=== PATIENT | female | born 1940 | race Caucasian/White ===

== ENCOUNTER 2018-02-10 11:18 | Inpatient (IN) | payer MEDICARE, OTHER ==
[2018-02-10 11:50] LABS: BASOPHILS % (AUTO) 0 % (0-3); EOSINOPHILS % (AUTO) 1 % (0-9); HEMATOCRIT 31 % (35-47); LYMPHOCYTES % (AUTO) 12.7 % (10-50); MEAN CORPUSCULAR HEMOGLOBIN 31.1 pg (27.0-32.0); MEAN CORPUSCULAR VOLUME 89 fL (81-99); MONOCYTES % (AUTO) 14.7 % (0-12); NEUTROPHILS % (AUTO) 71.7 % (37-80)
[2018-02-10 12:03] LABS: LACTIC ACID 1.6 mMol/L (0.0-2.0)
[2018-02-10 12:09] LABS: ALBUMIN 2.8 gm/dl (3.4-5.0); BILIRUBIN,TOTAL 1.1 mg/dl (0.2-1.0); CARBON DIOXIDE 24.4 mEq/L (21-32); CREATININE 0.72 mg/dl (0.60-1.00); POTASSIUM 3.7 mMol/L (3.5-5.1); TOTAL PROTEIN 5.9 gm/dl (6.4-8.2)
[2018-02-10 13:03] LABS: APPEARANCE,URINE Cloudy; BILIRUBIN,URINE NEGATIVE (NEGATIVE); COLOR,URINE Yellow; GLUCOSE, URINE (UA) NEGATIVE (NEGATIVE); KETONES,URINE NEGATIVE (NEGATIVE); LEUKOCYTE ESTERASE ,URINE 3+ (NEGATIVE); NITRATE,URINE POSITIVE (NEGATIVE); OCCULT BLOOD,URINE TRACE INTACT (NEG-TRACE); PH,URINE 7.5; UROBILINOGEN,URINE 0.2 (0.2-1.0 EU)
[2018-02-10 13:29] LABS: RBC,URINE 0-2 (0-3AV/HPF); WBC,URINE >200 (0-5AV/HPF)
[2018-02-10 13:30] LABS: BACTERIA 4+ (< 1+); CRYSTALS NEGATIVE (0-3 AVE/HPF); EPITHELIAL CELLS 0-1 (SQUAMOUS)
[2018-02-10] MEDS ORDERED: ERTAPENEM SODIUM 1 GM PDS ONE (15:51)
[2018-02-10] MEDS: ERTAPENEM SODIUM 1 GM PDS 1 GM in SODIUM CHLORIDE 0.9% 50 ML 50 ML IV SCH (17:36)
[2018-02-10] MEDS ORDERED: SODIUM CHLORIDE 0.9% 1000ML 1,000 ML IV NR (18:45)
[2018-02-10] MEDS: ENOXAPARIN 80 MG SOL SC SCH (19:44)
[2018-02-10] MEDS: SODIUM CHLORIDE 0.9% FLUSH 10 ML SOL IV SCH (19:54)
[2018-02-10] MEDS ORDERED: MAGNESIUM HYDROXIDE PO PRN (21:11)
[2018-02-10] MEDS ORDERED: ALUMINUM HYDROXIDE PO PRN (21:11)
[2018-02-10] MEDS ORDERED: DM/GUAIFENESIN SYRUP 10 ML SYRP PO PRN (21:11)
[2018-02-10] MEDS ORDERED: SIMETHICONE PO PRN (21:11)
[2018-02-10] MEDS ORDERED: ALBUTEROL NEB SOL 2.5MG/3ML 1 VIAL SOL INH PRN (21:11)
[2018-02-10] MEDS ORDERED: ACETAMINOPHEN 650 MG SUP PR PRN (21:23)
[2018-02-10] MEDS ORDERED: MELATONIN 3 MG TAB PO SCH (22:15)
[2018-02-10] MEDS ORDERED: DONEPEZIL 10 MG TAB PO SCH (22:15)
[2018-02-10] MEDS ORDERED: DONEPEZIL 5 MG 5 MG TAB ONE (22:57)
[2018-02-10] MEDS: CALCIUM PO SCH (23:06)
[2018-02-10] MEDS: VITAMIN D PO SCH (23:06)
[2018-02-10] MEDS: [UNRECOGNIZED DRUG - MIXTURE] PO SCH (23:07)
[2018-02-10] MEDS: POLYETHYLENE GLYCOL 17 GM/1 TBS PDS PO SCH (23:07)
[2018-02-10] MEDS: POTASSIUM CHLORIDE 10 MEQ TER PO SCH (23:07)
[2018-02-10] MEDS: ACETAMINOPHEN 325 MG PO PRN (23:08)
[2018-02-10] MEDS: ALBUTEROL/IPRATROPIUM 1 VIAL SOL INH SCH (23:37)
[2018-02-11] MEDS: SODIUM CHLORIDE 0.9% FLUSH 10 ML SOL IV SCH ×3 (04:12→20:13)
[2018-02-11] MEDS: ENOXAPARIN 80 MG SOL SC SCH ×2 (06:27→18:22)
[2018-02-11] MEDS: ALBUTEROL/IPRATROPIUM 1 VIAL SOL INH SCH ×3 (06:38→17:12)
[2018-02-11] MEDS ORDERED: CETIRIZINE HYDROCHLORIDE 10 MG TAB PO SCH (09:00)
[2018-02-11] MEDS ORDERED: BUDESONIDE INH SCH (09:00)
[2018-02-11] MEDS ORDERED: FORMOTEROL INH SCH (09:00)
[2018-02-11] MEDS ORDERED: CHOLECALCIFEROL 1,000 IU TAB PO SCH (09:00)
[2018-02-11] MEDS ORDERED: FLUTICASONE PROPIONATE NAS SCH (09:00)
[2018-02-11] MEDS ORDERED: DOCUSATE SODIUM 100 MG SGL PO SCH (09:00)
[2018-02-11] MEDS ORDERED: MULTIVITAMIN2 1 EA TAB PO SCH (09:00)
[2018-02-11] MEDS: PANTOPRAZOLE SODIUM 40 MG ECT PO SCH (09:02)
[2018-02-11] MEDS: ASPIRIN 81 MG CHEWABLE CTB PO SCH (09:02)
[2018-02-11] MEDS: CIPROFLOXACIN HCL 500 MG TAB PO SCH (09:02)
[2018-02-11] MEDS: POTASSIUM CHLORIDE 10 MEQ TER PO SCH ×2 (09:02→20:19)
[2018-02-11] MEDS: POLYETHYLENE GLYCOL 17 GM/1 TBS PDS PO SCH ×2 (09:03→20:17)
[2018-02-11] MEDS ORDERED: ALUMINUM/MAGNESIUM 30 ML SUS PO PRN (10:00)
[2018-02-11] MEDS: LEVOTHYROXINE SODIUM 88 MCG TAB PO SCH (10:24)
[2018-02-11] MEDS: FERROUS GLUCONATE 324 MG TABLET PO SCH ×2 (10:24→20:19)
[2018-02-11] MEDS: FLUDROCORTISONE ACETATE 0.1 MG TAB PO SCH (10:24)
[2018-02-11] MEDS: CALCIUM CARBONATE 500 MG TAB PO SCH ×2 (10:25→20:20)
[2018-02-11] MEDS: BUDESONIDE/FORMOTEROL 160/4.5 AER INH SCH ×2 (10:25→20:27)
[2018-02-11] MEDS: CHOLECALCIFEROL 1,000 IU TAB PO SCH (10:26)
[2018-02-11] MEDS: FLUTICASONE PROPIONATE SPR NAS SCH (11:41)
[2018-02-11] MEDS: CALCIUM PO SCH (11:42)
[2018-02-11] MEDS: VITAMIN D PO SCH (11:42)
[2018-02-11] MEDS: [UNRECOGNIZED DRUG - MIXTURE] PO SCH (11:43)
[2018-02-11] MEDS ORDERED: SODIUM CHLORIDE 0.9% 50 ML 50 ML IV ONE (14:52)
[2018-02-11] MEDS ORDERED: ERTAPENEM SODIUM 1 GM PDS ONE (14:52)
[2018-02-11] MEDS: ERTAPENEM SODIUM 1 GM PDS 1 GM in SODIUM CHLORIDE 0.9% 50 ML 50 ML IV SCH (15:13)
[2018-02-11] MEDS: ACETAMINOPHEN 325 MG PO PRN (20:17)
[2018-02-11] MEDS: DONEPEZIL 5 MG 5 MG TAB PO SCH (20:19)
[2018-02-12] MEDS: ALBUTEROL/IPRATROPIUM 1 VIAL SOL INH SCH ×5 (00:33→23:56)
[2018-02-12] MEDS: SODIUM CHLORIDE 0.9% FLUSH 10 ML SOL IV SCH ×3 (06:37→20:44)
[2018-02-12] MEDS: ENOXAPARIN 80 MG SOL SC SCH ×2 (06:37→18:24)
[2018-02-12] MEDS: LEVOTHYROXINE SODIUM 88 MCG TAB PO SCH (06:38)
[2018-02-12 07:07] LABS: CALCIUM 8.2 mg/dl (8.5-10.1); CARBON DIOXIDE 26.4 mEq/L (21-32); CREATININE 0.65 mg/dl (0.60-1.00); POTASSIUM 3.3 mMol/L (3.5-5.1)
[2018-02-12 07:20] LABS: BASOPHILS % (AUTO) 1 % (0-3); EOSINOPHILS % (AUTO) 3 % (0-9); HEMATOCRIT 33 % (35-47); HEMOGLOBIN 12.1 gm/dl (12.0-15.5); LYMPHOCYTES % (AUTO) 13.1 % (10-50); MEAN CORPUSCULAR HEMOGLOBIN 32.8 pg (27.0-32.0); MEAN CORPUSCULAR HGB CONC 37.2 gm/dl (32.0-36.0); MEAN CORPUSCULAR VOLUME 88 fL (81-99); NEUTROPHILS % (AUTO) 69.7 % (37-80)
[2018-02-12 08:05] LABS: POIKILOCYTOSIS SLIGHT AMT; SPHEROCYTES PRESENT
[2018-02-12] MEDS: FLUDROCORTISONE ACETATE 0.1 MG TAB PO SCH (08:57)
[2018-02-12] MEDS: CHOLECALCIFEROL 1,000 IU TAB PO SCH (08:57)
[2018-02-12] MEDS: POTASSIUM CHLORIDE 10 MEQ TER PO SCH ×2 (08:57→20:47)
[2018-02-12] MEDS: POLYETHYLENE GLYCOL 17 GM/1 TBS PDS PO SCH ×2 (08:57→20:44)
[2018-02-12] MEDS: FERROUS GLUCONATE 324 MG TABLET PO SCH ×2 (08:57→20:47)
[2018-02-12] MEDS: ASPIRIN 81 MG CHEWABLE CTB PO SCH (08:57)
[2018-02-12] MEDS: CIPROFLOXACIN HCL 500 MG TAB PO SCH (08:57)
[2018-02-12] MEDS: CALCIUM CARBONATE 500 MG TAB PO SCH ×2 (08:59→20:47)
[2018-02-12] MEDS: PANTOPRAZOLE SODIUM 40 MG ECT PO SCH (08:59)
[2018-02-12] MEDS: FLUTICASONE PROPIONATE SPR NAS SCH (09:00)
[2018-02-12] MEDS: BUDESONIDE/FORMOTEROL 160/4.5 AER INH SCH ×2 (09:04→20:48)
[2018-02-12] MEDS ORDERED: ERTAPENEM SODIUM 1 GM PDS 1 GM in SODIUM CHLORIDE 0.9% 50 ML 50 ML IV SCH (15:30)
[2018-02-12] MEDS ORDERED: ERTAPENEM SODIUM 1 GM PDS ONE (15:43)
[2018-02-12] MEDS: DONEPEZIL 5 MG 5 MG TAB PO SCH (20:47)
[2018-02-13] MEDS: ENOXAPARIN 80 MG SOL SC SCH ×2 (06:19→18:10)
[2018-02-13] MEDS: ALBUTEROL/IPRATROPIUM 1 VIAL SOL INH SCH ×3 (06:20→18:10)
[2018-02-13] MEDS: SODIUM CHLORIDE 0.9% FLUSH 10 ML SOL IV SCH ×3 (06:20→20:07)
[2018-02-13] MEDS: LEVOTHYROXINE SODIUM 88 MCG TAB PO SCH (06:20)
[2018-02-13 07:11] LABS: CALCIUM 8.3 mg/dl (8.5-10.1); CARBON DIOXIDE 26.1 mEq/L (21-32); CREATININE 0.53 mg/dl (0.60-1.00); POTASSIUM 3.6 mMol/L (3.5-5.1)
[2018-02-13] MEDS: POTASSIUM CHLORIDE 10 MEQ TER PO SCH ×2 (08:31→20:06)
[2018-02-13] MEDS: CALCIUM CARBONATE 500 MG TAB PO SCH ×2 (08:32→20:06)
[2018-02-13] MEDS: CIPROFLOXACIN HCL 500 MG TAB PO SCH (08:32)
[2018-02-13] MEDS: FERROUS GLUCONATE 324 MG TABLET PO SCH ×2 (08:32→20:06)
[2018-02-13] MEDS: PANTOPRAZOLE SODIUM 40 MG ECT PO SCH (08:32)
[2018-02-13] MEDS: CHOLECALCIFEROL 1,000 IU TAB PO SCH (08:32)
[2018-02-13] MEDS: POLYETHYLENE GLYCOL 17 GM/1 TBS PDS PO SCH ×2 (08:32→20:05)
[2018-02-13] MEDS: ASPIRIN 81 MG CHEWABLE CTB PO SCH (08:32)
[2018-02-13] MEDS: FLUDROCORTISONE ACETATE 0.1 MG TAB PO SCH (08:33)
[2018-02-13] MEDS: FLUTICASONE PROPIONATE SPR NAS SCH (08:44)
[2018-02-13] MEDS: BUDESONIDE/FORMOTEROL 160/4.5 AER INH SCH ×2 (08:45→20:05)
[2018-02-13] MEDS ORDERED: SODIUM CHLORIDE 0.9% 50 ML 50 ML IV ONE (14:00)
[2018-02-13] MEDS ORDERED: ERTAPENEM SODIUM 1 GM PDS ONE (14:00)
[2018-02-13] MEDS: ERTAPENEM SODIUM 1 GM PDS 1 GM in SODIUM CHLORIDE 0.9% 50 ML 50 ML IV SCH (14:14)
[2018-02-13] MEDS: DONEPEZIL 5 MG 5 MG TAB PO SCH (20:06)
[2018-02-14] MEDS: ALBUTEROL/IPRATROPIUM 1 VIAL SOL INH SCH ×3 (00:29→11:57)
[2018-02-14] MEDS: SODIUM CHLORIDE 0.9% FLUSH 10 ML SOL IV SCH ×2 (03:08→12:07)
[2018-02-14] MEDS: ENOXAPARIN 80 MG SOL SC SCH (06:38)
[2018-02-14] MEDS: LEVOTHYROXINE SODIUM 88 MCG TAB PO SCH (06:38)
[2018-02-14] MEDS: POTASSIUM CHLORIDE 10 MEQ TER PO SCH (08:40)
[2018-02-14] MEDS: CHOLECALCIFEROL 1,000 IU TAB PO SCH (08:40)
[2018-02-14] MEDS: CIPROFLOXACIN HCL 500 MG TAB PO SCH (08:41)
[2018-02-14] MEDS: CALCIUM CARBONATE 500 MG TAB PO SCH (08:41)
[2018-02-14] MEDS: ASPIRIN 81 MG CHEWABLE CTB PO SCH (08:41)
[2018-02-14] MEDS: PANTOPRAZOLE SODIUM 40 MG ECT PO SCH (08:43)
[2018-02-14] MEDS: FLUDROCORTISONE ACETATE 0.1 MG TAB PO SCH (08:43)
[2018-02-14] MEDS: POLYETHYLENE GLYCOL 17 GM/1 TBS PDS PO SCH (08:43)
[2018-02-14] MEDS: FERROUS GLUCONATE 324 MG TABLET PO SCH (08:43)
[2018-02-14] MEDS: BUDESONIDE/FORMOTEROL 160/4.5 AER INH SCH (08:49)
[2018-02-14] MEDS: FLUTICASONE PROPIONATE SPR NAS SCH (08:50)
[2018-02-14 08:54] VITALS: BP 129/74; TEMP 97.6
[2018-02-14 11:59] VITALS: RESP 20
[2018-02-14 12:07] VITALS: PULSE 63; O2SAT 100
[2018-02-14] MEDS ORDERED: SODIUM CHLORIDE 0.9% 50 ML 50 ML IV ONE (12:49)
[2018-02-14] MEDS ORDERED: ERTAPENEM SODIUM 1 GM PDS ONE (12:49)
[2018-02-14] MEDS: ERTAPENEM SODIUM 1 GM PDS 1 GM in SODIUM CHLORIDE 0.9% 50 ML 50 ML IV SCH (13:34)
[2018-02-15] MEDS ORDERED: ALENDRONATE 70 MG TAB PO SCH (07:00)
== END 2018-02-14 14:30 | DRG 690 ==
LOC: ED 11:18 → ACUTE CARE 17:00
PROVIDERS: ADMIT Emergency Medicine; ATTEND Family Medicine
DX: N39.0 Urinary tract infection, site not specified (principal); N30.00 Acute cystitis without hematuria; Z85.51 Personal history of malignant neoplasm of bladder; B96.1 Klebsiella pneumoniae [K. pneumoniae] as the cause of diseases classified elsewhere; J47.9 Bronchiectasis, uncomplicated; R53.83 Other fatigue; R79.1 Abnormal coagulation profile; M79.605 Pain in left leg; M79.604 Pain in right leg
CPT/HCPCS: 36415; 70450; 71275; 74176; 80048; 80053; 81001; 85025; 85378; 87040; 87077; 87088; 87186; 94150; 94640; 94669; 99221; 99282; J1335; J1650; J7613; Q9967; A6232; A9270-GY

== ENCOUNTER 2018-02-14 19:34 | Emergency (ER) | payer MEDICARE, OTHER ==
[2018-02-14] MEDS ORDERED: TDAP VACCINE 0.5 ML SUS IM ONE ×2 (20:00→20:02)
[2018-02-14 20:01] VITALS: RESP 20
[2018-02-14 20:02] LABS: BASOPHILS % (AUTO) 1 % (0-3); EOSINOPHILS % (AUTO) 4 % (0-9); HEMATOCRIT 34 % (35-47); HEMOGLOBIN 11.7 gm/dl (12.0-15.5); LYMPHOCYTES % (AUTO) 19.7 % (10-50); MEAN CORPUSCULAR HEMOGLOBIN 30.4 pg (27.0-32.0); MEAN CORPUSCULAR HGB CONC 34.8 gm/dl (32.0-36.0); MEAN CORPUSCULAR VOLUME 88 fL (81-99); MONOCYTES % (AUTO) 9.6 % (0-12); NEUTROPHILS % (AUTO) 65.9 % (37-80)
[2018-02-14 20:14] LABS: INR 0.99 (0.86-1.12)
[2018-02-14 20:22] LABS: ALBUMIN 2.8 gm/dl (3.4-5.0); BILIRUBIN,TOTAL 0.5 mg/dl (0.2-1.0); CALCIUM 8.7 mg/dl (8.5-10.1); CARBON DIOXIDE 27.6 mEq/L (21-32); CREATININE 0.62 mg/dl (0.60-1.00); POTASSIUM 3.6 mMol/L (3.5-5.1); TOTAL PROTEIN 6.3 gm/dl (6.4-8.2)
[2018-02-14 23:06] VITALS: TEMP 98.1
[2018-02-14 23:11] VITALS: BP 127/59; PULSE 68; O2SAT 92
== END 2018-02-14 22:58 | DRG 605 ==
LOC: ED 19:34
DX: S01.01XA Laceration without foreign body of scalp, initial encounter (principal); F03.90 Unspecified dementia, unspecified severity, without behavioral disturbance, psychotic disturbance, mood disturbance, and anxiety; W19.XXXA Unspecified fall, initial encounter; R40.2142 Coma scale, eyes open, spontaneous, at arrival to emergency department; T14.8XXA Other injury of unspecified body region, initial encounter; M25.551 Pain in right hip
CPT/HCPCS: 36415; 70450; 72125; 73030; 73521; 73562; 73700; 80053; 85025; 85610; 85730; 90715; 99285